=== PATIENT | male | born 1965 | race Caucasian/White ===

== ENCOUNTER 2016-11-15 18:12 | Emergency (ER) | payer MEDICAID, MEDICARE ==
[~2016-11-15] VITALS: Ht 170.2 cm; Wt 131.8 kg
[~2016-11-15 18:12] MED LIST: ASPI325T32 PO; ATOR10TA66 PO; DOCU-41 PO; GLPZ5T PO; LISI40TA PO; METF1000 PO; NYST15CR TP; SILD100T PO
[2016-11-15 18:15] VITALS: BP 138/82; PULSE 92; RESP 18; O2SAT 87
[2016-11-15 18:46] LABS: BASOPHILS % (AUTO) 0.1 % (0-3); EOSINOPHILS % (AUTO) 2.2 % (0-5); MONOCYTES % (AUTO) 4.9 % (4-12); Mean Corpuscular Hemoglobin 30.4 pg (27.0-35.0); NEUTROPHILS % (AUTO) 64.1 % (40-74); Platelet Count 186 bil/L (150-400)
--- NOTE | 2016-11-15 19:04 | DRSVH ---
PROCEDURE: X-RAY CHEST ONE VIEW, PORTABLE ([id number]) INDICATIONS: Dizzy TECHNIQUE: One view of the chest was acquired. COMPARISON: None. FINDINGS: Surgical changes and devices: None. Lungs and pleura: Trace left-sided pleural fluid collection noted. Patchy opacity noted in the left lung base suspicious for pneumonia. Mediastinum: Mediastinal contours appear normal. Heart size is normal. Bones and chest wall: No suspicious bony lesions. Overlying soft tissues appear unremarkable. IMPRESSION: Small left-sided pleural effusion and patchy left basilar opacity airspace opacities. F indings suspicious for pneumonia with small parapneumonic effusion. Dictated by: Kathleen Olson MD, PhD on 11/15/2016 at 19:02 Approved by: Kathleen Olson MD, PhD on 11/15/2016 at 19:03
[2016-11-15 19:16] LABS: TROPONIN T < 0.010 ug/L (0.0-0.011)
[2016-11-15 19:22] LABS: Magnesium 1.9 mg/dL (1.6-2.6)
[2016-11-15 20:17] VITALS: BP 112/50; PULSE 74; RESP 16; O2SAT 96
--- NOTE | 2016-11-15 20:49 | ED.REPORT ---
HPI-General Illness Date of Service Nov 15, 2016 ED Provider: Jeremy Guevara MD The patient is a 51 year old male w/ a hx of DM and HTN who presents to the ED due to dizziness onset 4 days ago. Associated symptoms include head pain and unsteadiness. It feels like he's spinning. Symptoms are increased when he tilts his head back. He had a posterior circulation stroke in 2002 and reports that this feels a little bit similar. Symptoms have been persistent and steady since onset. He denies trouble with balance, weakness, nausea, difficulty swallowing, and double vision. His previous stroke affected his left side a little bit. Dr. Almanza is his PCP. He is on Lisinopril, Metformin, Lipitor, Atorvastatin. He is supposed to be taking a baby aspirin a day but he does not. He is a smoker. Nursing Notes Stated Complaint: NECK PAIN, DIZZINESS Chief Complaint: General Complaint Nursing Notes Reviewed: Yes Allergies: Coded Allergies: rosuvastatin calcium (Verified Adverse Reaction, Severe, MYALGIAS, INCREASED CPK, 11/15/16) Scheduled Aspirin (Aspirin) 325 Mg Tablet 325 MG PO DAILY Atorvastatin Calcium (Atorvastatin Calcium) 10 Mg Tablet 20 MG PO DAILY Glipizide (Glipizide) 5 Mg Tablet 5 MG PO BID Lisinopril (Lisinopril) 40 Mg Tablet 40 MG PO DAILY Metformin (Glucophage) 1,000 Mg Tablet 1,000 MG PO BID Nystatin/Triamcin (Nystatin-Triamcinolone Cream) 15 Gm Cream..g. 15 GM TP BID 100,000/0.1% Scheduled PRN Docusate Sodium (Colace) 100 Mg Capsule 100 MG PO BID PRN PRN For Constipation Sildenafil Citrate (Viagra) 100 Mg Tablet 100 MG PO UD PRN PRN ED General Time Seen by MD: 20:49 Chief Complaint Dizziness Hx Obtained From: Patient Arrived By: Walk-in Sudden in Onset?: Yes Onset Occurred: 4 days ago Symptom Duration: Since onset Recent Healthcare: No recent doctor visit, No recent hospitalization Similar Sx Previous: No Past Medical History Past Medical History Reports: Stroke Past Surgical History Reports: Inguinal hernia repair Smoking History Current Every Day Smoker Social History Other Social History: Good social support, Local resident Ambulatory Status Independent Review of Systems Full Review of Systems GI: Denies: Nausea Neurologic: Reports: Dizziness, Spinning sensation, Denies: Problem walking, Unable to speak, Weakness Complete sys rev & neg: except as marked. Physical Exam Vital Signs Vital Signs Date Time Temp Pulse Resp B/P Pulse Ox O2 Delivery O2 Flow Rate FiO2 11/16/16 00:40 79 16 142/69 97 Room Air 11/15/16 23:52 74 18 139/78 96 Room Air 11/15/16 22:02 74 15 126/69 95 Room Air 11/15/16 20:17 74 16 112/50 96 Room Air 11/15/16 18:15 36.3 92 18 138/82 87 Room Air Initial VS: Reviewed Head / Eyes: Atraumatic, Normocephalic, PERRL ENT: Mucous membranes moist, Conjunctiva normal Neck: Supple, Non-tender Skin: Warm, Dry General/Constitutional: Awake, Alert, Cooperative Respiratory / Chest: Atraumatic, Breath sounds NL, Breath sounds = bilat Cardiovascular: Heart rate NL, Regular rhythm Heart Sounds / Murmur: Positive: Systolic murmur present.. (soft, lower border ) NIH Stroke Scale Level of Consciousness: Alert and responsive (0) Ask Month & Age: Both questions right (0) Open/Close Eyes/Hand Assistant Foreman: Performs both tasks (0) Horizontal EO Movements: None (0) Visual Zimmer: No visual loss (0) Facial Palsy: Normal symmetry (0) Right Arm Motor Drift (10s): No drift 10 sec (0) Left Arm Motor Drift (10s): Drift, not touch bed (1) Right Leg Motor Drift (5s): No drift 5 sec (0) Left Leg Motor Drift (5s): No drift 5 sec (0) Limb Ataxia FNF/Heel-Kang: No ataxia (0) Sensation (Arms/Legs/Face): No sensory loss (0) Language Aphasia: No aphasia, normal (0) Dysarthria: No dysarthria, normal (0) Extinction/Inattention: No exctinct/inattent (0) NIHSS Score: 1 Time NIHSS Performed: 23:42 Date NIHSS Performed: Nov 15, 2016 Interpretation & Diagnostics Interpretation & Diagnostics: CT ANGIOGRAM OF NECK AND BRAIN IMPRESSION: Occluded left vertebral artery with trace flow identified from C3-C4 to the C1 transverse foramen. No carotid artery stenosis or occlusion within the neck. No evidence of an aneurysm, significant stenosis or major branch occlusion, save for the intracranial segment of the left vertebral artery and posterior inferior cerebellar artery. Radiologist: Nba Hager Lab Results Interpretation Result Diagram: 11/15/16 1839 11/15/16 1839 Test 11/15/16 18:39 White Blood Count 9.1th/mm3 (3.8-10.1) Red Blood Count 4.97mil/mm3 (4.40-5.80) Hemoglobin 15.1g/dL (13.8-17.2) Hematocrit 46.7% (41.0-50.0) Mean Corpuscular Volume 94.0fL (81-100) Mean Corpuscular Hemoglobin 30.4pg (27.0-35.0) Mean Corpuscular Hemoglobin Concent 32.3% (32.0-37.0) Red Cell Distribution Width 13.7% (12.3-15.4) Platelet Count 186bil/L (150-400) Neutrophils (%) (Auto) 64.1% (40-74) Lymphocytes (%) (Auto) 28.6% (14-46) Monocytes (%) (Auto) 4.9% (4-12) Eosinophils (%) (Auto) 2.2% (0-5) Basophils (%) (Auto) 0.1% (0-3) Sodium Level 136mEq/L (134-144) Potassium Level 4.3mEq/L (3.5-5.2) Chloride Level 98mEq/L (97-108) Carbon Dioxide Level 22mmol/L (18-29) Blood Urea Nitrogen 12mg/dL (6-24) Creatinine 0.75mg/dL (0.76-1.27) Estimat Glomerular Filtration Rate 118mL/min (>59) Glucose Level 220mg/dL (60-99) Calcium Level 9.0mg/dL (8.5-10.1) Magnesium Level 1.9mg/dL (1.6-2.6) Total Bilirubin 0.3mg/dL (0.0-1.2) Aspartate Amino Transf (AST/SGOT) 24U/L (0-50) Alanine Aminotransferase (ALT/SGPT) 24U/L (0-44) Alkaline Phosphatase 89U/L (25-150) Troponin T < 0.010ug/L (0.0-0.011) Total Protein 7.2g/dL (6.4-8.4) Albumin 4.2g/dL (3.4-5.0) Hold Peacock Top Tube Received (Received) ECG Interpretation ECG Interpretation: RBBB and LAFB Time: 10:17 Interpreted by: ED physician Normal ECG Interpretation: Normal rate (77), Normal sinus rhythm X-Ray Chest Interpretation Chest Xray Interpretation: IMPRESSION: Small left-sided pleural effusion and patchy left basilar opacity airspace opacities. Findings suspicious for pneumonia with small parapneumonic effusion. Dictated by: Kathleen Olson MD, PhD on 11/15/2016 at 19:02 Approved by: Kathleen Olson MD, PhD on 11/15/2016 at 19:03 View: Portable Interpretation / Wet Read by: Interpret - Radiologist CT Head Interpretation IMPRESSION: No acute intracranial disease process. Dictated by: Kathleen Olson MD, PhD on 11/15/2016 at 21:22 Approved by: Kathleen Olson MD, PhD on 11/15/2016 at 21:24 Study: Head CT no contrast Interpretation / Wet Read by: Interpret - Radiologist Re-Eval/Medical Decision Med Decision/Clinical Course 51-year-old male with 4 days of persistent low-grade dizziness. 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 He has risk factors including hypertension diabetes on cholesterol and smoking, he has not been taking aspirin. CT brain showed no acute change, CT angiogram of the head and neck shows left vertebral artery occlusion, giving history this is thought chronic. The patient was given full dose aspirin and will be held in the emergency department and A noncontrast brain MRI can be obtained to rule out new ischemic stroke. Time of Eval: 23:21 Patient Status: Condition unchanged Re-Evaluation/Progress Note: Pt rechecked. Plan to call to see if an MR stroke protocol can be scheduled tonight. After consult with Dr. Olson, scheduled CT angiogram head and neck tonight and MRI non contrast tomorrow morning. Consultation : Referral / Consult Name: Kathleen Olson MD, PhD Call Returned at: 23:56 Cardiology Technologist: Agrees with eval, Agrees with plan Note: Case discussed. Advised CT angiogram head and neck tonight and MRI non contrast tomorrow morning. Counseled Regarding: Diagnosis, Lab results Discharge & Departure Shift Change Sign-Out Patient Care Transferred: Yes Discussed Complaint(s): Yes Imaging Studies: Done, reviewed by me Awaiting an noncontrast brain MRI which is ordered. Primary Impression: Dizziness Discharge Condition All VS Reviewed: Yes Condition: Stable Referrals: Kannan Almanza MD (PCP) Care Transferred to: Dr. Parish Almanza Care Transferred at: 03:15 Scribe Attestation Portion of this note were transcribed by Berenice Zamora. I, Dr. Guevara, personally performed the history, physical exam, and medical decision-making: I reviewed and confirmed the accuracy for the information in the transcribed note. Signed by: hilario Padilla, 11/16/16 0100 copies to: Kannan Almanza MD, Donald L MD Nov 15, 2016 20:49 Berenice Zamora Nov 15, 2016 21:01
--- NOTE | 2016-11-15 21:25 | DRSVH ---
PROCEDURE: CT BRAIN WITHOUT CONTRAST ([id number]) INDICATIONS: dizzy, prior stroke TECHNIQUE: Noncontrast 4.5 mm thick angled axial sections acquired from the foramen magnum to the vertex, with c oronal reformats. COMPARISON: None. FINDINGS: Image quality: Excellent. CSF spaces: Basal cisterns are patent. No extra-axial fluid collections. Ventricles are normal in size and shape. Brain: No midline shift. No intracranial masses or hemorrhage. Carty-white matter interface is norm al. Chronic left cerebellar hemisphere infarct is noted. Atherosclerotic calcifications noted in the internal carotid arteries bilaterally. Skull and face: Calvarium and visualized facial bones are intact, without suspicious lesions. Sinuses: Visualized sinuses and mastoids are clear. IMPRESSION: No acute intracranial disease process. Dictated by: Kathleen Olson MD, PhD on 11/15/2016 at 21:22 Approved by: Kathleen Olson MD, PhD on 11/15/2016 at 21:24
[2016-11-15 22:02] VITALS: BP 126/69; PULSE 74; RESP 15; O2SAT 95
[2016-11-15 23:52] VITALS: BP 139/78; PULSE 74; RESP 18; O2SAT 96
[2016-11-16] MEDS ORDERED: 0.9% Sodium Chloride 1,000 ML IV ONE
[2016-11-16 00:40] VITALS: BP 142/69; PULSE 79; RESP 16; O2SAT 97
[2016-11-16 05:05] VITALS: BP 112/73; PULSE 71; RESP 16; O2SAT 97
--- NOTE | 2016-11-16 09:48 | DRSVH ---
PROCEDURE: CT ANGIO HEAD AND NECK (P) INDICATIONS: dizziness, prior vertebral dissection TECHNIQUE: Pre-contrast 4.5 mm thick sections acquired from the foramen magnum to the vertex. After the adminis tration of intravenous contrast, 1 mm thick sections acquired from the aortic arch through the [place] of [place]. Post-contrast 4.5 mm thick sections then re-acquired from the foramen magnum to the vert ex. 3-dimensional qybcdbo-gfupxmjtw-prbosbnelj (MIP) and/or volume rendering reformats were acquired of the central intracranial vasculature and neck separately. For radiation dose reduction, the foll owing was used: automated exposure control, adjustment of mA and/or kV according to patient size. COMPARISON: [facility], CT, CT BRAIN WO CON, 11/15/2016, 21:15. FINDINGS: Image quality: Excellent. BRAIN: CSF spaces: Ventricles are normal in size and shape. Basal cisterns are patent. No extra-axial flu id collections. Brain: Chronic left cerebellar hemisphere infarct is stable compared to prior CT scan of the head. No midline shift. No intracranial bleeds or masses. Carty-white matter interface appears intact. Skull and face: Calvarium and facial bones appear intact, without suspicious lesions. Orbits appear normal. Sinuses: Sinuses and mastoids are clear. HEAD CT ANGIOGRAPHY: Anterior circulation: Intracranial internal carotid arteries are normal in size and flow. Atheroscl erotic calcifications noted in the cavernous segments of the intracranial internal carotid arteries b ilaterally which do not cause of measurable stenosis. The flow within the paired anterior cerebral ar teries is normal and symmetric. The flow within the middle cerebral arteries is normal and symmetric . The anterior communicating artery is seen. No aneurysms are seen. Posterior circulation: Normal contrast opacification of the intracranial right vertebral artery noted . There is absence of contrast opacification of the intracranial left vertebral artery compatible wit h occlusion. Normal contrast opacification of the basilar artery is noted. Flow within the posterior cerebral arteries is normal and symmetric. Normal contrast opacification of the posterior communicati ng arteries noted. No aneurysms are seen. Dural sinuses demonstrate normal enhancement. NECK CT ANGIOGRAPHY: Carotid system: The great vessels demonstrate bovine variant anatomy as they arise from the aortic a [facility]. The origins of the common carotid arteries appear patent. The common carotid arteries demonstr ate normal caliber and courses. Calcified atherosclerotic plaque in the origins of the internal carot id arteries bilaterally which does not cause measurable stenosis. Posterior circulation: The left vertebral artery is occluded at its origin. Origin of right vertebral artery is suboptimally visualized due to to beam hardening artifact. There may be soft plaque in the origin of the right vertebral artery which causes mild stenosis of the vessel. The V2, V3 and V4 seg ments of the right vertebral artery appear fully patent. Normal contrast opacification of the right p osterior inferior cerebral artery noted. The V1 and V4 segments of the left vertebral artery are occl uded. There is minimal reconstitution of flow in the distal V2 and V3 segments of the left vertebral artery likely due to deep cervical collaterals. Soft tissues: Visualized neck soft tissues demonstrate no suspicious abnormalities. Bones: No suspicious bony lesions. Visualized cervical spine appears normally aligned. IMPRESSION: 1. No hemodynamically significant stenosis or occlusion involving the internal carotid arteries. 2. Possible mild atherosclerotic stenosis of the origin of the right vertebral artery. Origin of the right vertebral artery is suboptimally visualized due to artifact. 3. Occlusion of the V1 and V4 segments of the left vertebral artery and the left posterior inferior c erebellar artery. Minimal reconstitution of flow in the distal V2 and V3 segments of the left vertebr al artery likely related to deep cervical collateral flow. Dictated by: Kathleen Olson MD, PhD on 11/16/2016 at 9:21 Approved by: Kathlene Olson MD, PhD on 11/16/2016 at 9:46
[2016-11-16 10:14] VITALS: BP 118/81; RESP 12; O2SAT 95
== END 2016-11-16 10:15 | disposition home or self-care (01) ==
LOC: SED 18:12
DX: H81.10 Benign paroxysmal vertigo, unspecified ear (principal); E11.9 Type 2 diabetes mellitus without complications; I10 Essential (primary) hypertension; Z86.73 Personal history of transient ischemic attack (TIA), and cerebral infarction without residual deficits; Z79.82 Long term (current) use of aspirin; Z79.84 Long term (current) use of oral hypoglycemic drugs; F17.200 Nicotine dependence, unspecified, uncomplicated; Z88.8 Allergy status to other drugs, medicaments and biological substances
CPT/HCPCS: 36415; 70450; 70496; 70498; 71010; 80053; 83735; 84484; 85025; 93005; 96360; 99285; J7030; Q9967